=== PATIENT | female | born 1995 | race American Indian/Alaskan Native ===

== ENCOUNTER 2016-10-23 13:35 | Emergency (ER) | payer SELFPAY ==
[2016-10-23 13:53] VITALS: BP 110/76
[2016-10-23 14:32] LABS: Basophils % (Auto) 0.6 % (0.0-1.8); Eosinophils % (Auto) 3.3 % (0.0-4.3); Hematocrit 39.1 % (30.3-42.9); Hemoglobin 13.1 gm/dl (10.1-14.3); Mean Corpuscular HGB Conc 34 % (30-34); Mean Corpuscular Hemoglobin 31 pg (28-32); Mean Corpuscular Volume 91 fl (79-97); Platelet Count 144 K/mm3 (140-440); Red Blood Count 4.29 M/mm3 (3.65-5.03); Red Cell Distribution Width 14.3 % (13.2-15.2); White Blood Count 5.1 K/mm3 (4.5-11.0)
[2016-10-23 14:48] LABS: Alanine Aminotransferase 16 units/L (7-56); Albumin 4.1 g/dL (3.9-5); Albumin/Globulin Ratio 1.2 %; Alkaline Phosphatase 54 units/L (35-129); Anion Gap 16 mmol/L; BUN/Creatinine Ratio 16.66; Bilirubin,Total 0.4 mg/dL (0.1-1.2); Blood Urea Nitrogen 10 mg/dL (7-17); Carbon Dioxide 24 mmol/L (22-30); Chloride 100.4 mmol/L (98-107); Glucose 99 mg/dL (65-100); Lipase 27 units/L (13-60); Potassium 3.4 mmol/L (3.6-5.0); Sodium 137 mmol/L (137-145); Total Protein 7.4 g/dL (6.3-8.2)
== END 2016-10-23 20:40 | disposition left against medical advice (07) ==
LOC: ED 13:35
DX: R10.9 Unspecified abdominal pain (principal); R11.2 Nausea with vomiting, unspecified; R19.7 Diarrhea, unspecified; Z53.21 Procedure and treatment not carried out due to patient leaving prior to being seen by health care provider
CPT/HCPCS: 36415; 80053; 83690; 85025

== ENCOUNTER 2017-06-02 13:18 | Emergency (ER) | payer MEDICAID, OTHER ==
[2017-06-02 13:41] VITALS: BP 112/65
--- NOTE | 2017-06-02 16:06 | Emergency Department Report ---
ED Lower Extremity HPI - General Chief Complaint: Extremity Injury, Lower Stated Complaint: LFT SMALL TOE PAINFUL Time Seen by Provider: 06/02/17 16:01 Source: patient Mode of arrival: Ambulatory Limitations: No Limitations - History of Present Illness Initial Comments: Pt reports she has been having pain to her L little toe for a while, worse when standing for long periods. No trauma. No numbness. Complaint: foot injury -: Gradual, week(s) Injury: Toes: Left Place: work Severity: moderate Severity scale (0 -10): 4 Improves With: rest Worsens With: weight bearing Context: other Associated Symptoms: denies: swelling, numbness, tingling - Related Data Previous Rx's Medication Instructions Recorded Last Taken Type Meloxicam [Mobic] 15 mg PO DAILY #15 tablet 06/02/17 Unknown Rx Allergies Allergy/AdvReac Type Severity Reaction Status Date / Time pollen extracts Allergy Itching Verified 10/23/16 13:47 ED Review of Systems ROS: Stated complaint: LFT SMALL TOE PAINFUL Other details as noted in HPI Constitutional: denies: chills, fever Eyes: denies: eye pain, eye discharge, vision change ENT: denies: ear pain, throat pain Respiratory: denies: cough, shortness of breath, wheezing Cardiovascular: denies: chest pain, palpitations Endocrine: no symptoms reported Gastrointestinal: denies: abdominal pain, nausea, diarrhea Genitourinary: denies: urgency, dysuria, discharge Musculoskeletal: as per HPI. denies: back pain, joint swelling, arthralgia Skin: denies: rash, lesions Neurological: denies: headache, weakness, paresthesias Psychiatric: denies: anxiety, depression Hematological/Lymphatic: denies: easy bleeding, easy bruising ED Past Medical Hx - Past Medical History Previous Medical History?: No Additional medical history: Vaginal delivery - Surgical History Past Surgical History?: No - Social History Smoking Status: Never Smoker Substance Use Type: None - Medications Home Medications: Home Medications Medication Instructions Recorded Confirmed Last Taken Type Meloxicam [Mobic] 15 mg PO DAILY #15 tablet 06/02/17 Unknown Rx ED Physical Exam - General Limitations: No Limitations General appearance: alert, in no apparent distress - Head Head exam: Present: atraumatic, normocephalic - Eye Eye exam: Present: normal appearance - ENT ENT exam: Present: mucous membranes moist - Neck Neck exam: Present: normal inspection - Respiratory Respiratory exam: Present: normal lung sounds bilaterally. Absent: respiratory distress - Cardiovascular Cardiovascular Exam: Present: regular rate, normal rhythm. Absent: systolic murmur, diastolic murmur, rubs, gallop - GI/Abdominal GI/Abdominal exam: Present: soft, normal bowel sounds - Extremities Exam Extremities exam: Present: normal inspection, other (Pt has pain to the extensor tendon of the 5th digit of the L foot. Exam otherwise normal. CMS intact. ) - Back Exam Back exam: Present: normal inspection - Neurological Exam Neurological exam: Present: alert, oriented X3 - Psychiatric Psychiatric exam: Present: normal affect, normal mood - Skin Skin exam: Present: warm, dry, intact, normal color. Absent: rash ED Course Vital Signs 06/02/17 13:36 Temperature 97.8 F Pulse Rate 85 Respiratory 18 Rate Blood Pressure 112/65 O2 Sat by Pulse 100 Oximetry - Reevaluation(s) Reevaluation #1: 06/02/17 16:05 Pt is in NAD and stable for d/c. ED Lower Extremity MDM - Medical Decision Making Pt with probable tendonitis of foot. Will treat and refer. - Differential Diagnosis tendonitis, stress fx Critical care attestation.: If time is entered above; I have spent that time in minutes in the direct care of this critically ill patient, excluding procedure time. ED Disposition Clinical Impression: Extensor tendonitis of foot Disposition: DC-01 TO HOME OR SELFCARE Is pt being admited?: No Condition: Good Instructions: Tendinitis (ED) Prescriptions: Meloxicam [Mobic] 15 mg PO DAILY #15 tablet Referrals: ZUHAIR TRUJILLO MD [Staff Physician] - 3-5 Days Time of Disposition: 16:06
== END 2017-06-02 16:10 | disposition home or self-care (01) ==
LOC: ED 13:18
DX: M77.52 Other enthesopathy of left foot and ankle (principal); Z91.048 Other nonmedicinal substance allergy status
CPT/HCPCS: 99282

== ENCOUNTER 2017-11-04 14:28 | Emergency (ER) | payer MEDICAID ==
[2017-11-04 15:18] VITALS: BP 105/78
--- NOTE | 2017-11-04 17:42 | Emergency Department Report ---
ED General Adult HPI - General Chief complaint: Allergic Reaction Stated complaint: ALLERGIES Time Seen by Provider: 11/04/17 17:36 Source: patient Mode of arrival: Ambulatory Limitations: No Limitations - History of Present Illness Initial comments: 21-year-old -[place] female comes in today complaining of allergies uncontrolled. Patient reports that she is taking [id number] Claritin and Benadryl without much relief. She complains of itchiness to her extensors and neck. She denies any history of eczema. Patient admits to sneezing coughing runny nose and nasal congestion watery eyes. Denies any past medical history currently take [id number] Benadryl and known known drug allergies. -: week(s) (1) Location: head Radiation: non-radiation Improves with: none Worsens with: none Associated Symptoms: cough, rash Treatments Prior to Arrival: other (Benadryl, Claritin) - Related Data Previous Rx's Medication Instructions Recorded Last Taken Type Meloxicam [Mobic] 15 mg PO DAILY #15 tablet 06/02/17 Unknown Rx Levocetirizine Dihydrochloride 5 mg PO QDAY #60 tablet 11/04/17 Unknown Rx Triamcinolone Acetonide [Nasacort 16.9 ml NS QDAY #1 spray 11/04/17 Unknown Rx SPRAY] Triamcinolone Acetonide 15 gm TP BID PRN #15 oint...g. 11/04/17 Unknown Rx [Triamcinolone Acetonide Oint 0.5%] Allergies Allergy/AdvReac Type Severity Reaction Status Date / Time pollen extracts Allergy Itching Verified 10/23/16 13:47 ED Review of Systems ROS: Stated complaint: ALLERGIES Other details as noted in HPI Constitutional: denies: chills, fever Eyes: eye discharge (watery discharge from eyes) ENT: congestion, other (rhinorrhea, sneezing) Respiratory: cough. denies: shortness of breath, wheezing Cardiovascular: denies: chest pain, palpitations Endocrine: no symptoms reported Gastrointestinal: denies: abdominal pain, nausea, diarrhea Genitourinary: denies: urgency, dysuria, discharge Musculoskeletal: denies: back pain, joint swelling, arthralgia Skin: rash (neck, axillary area) Neurological: denies: headache, weakness, paresthesias Psychiatric: denies: anxiety, depression Hematological/Lymphatic: denies: easy bleeding, easy bruising ED Past Medical Hx - Past Medical History Previous Medical History?: No Additional medical history: Vaginal delivery - Social History Smoking Status: Never Smoker - Medications Home Medications: Home Medications Medication Instructions Recorded Confirmed Last Taken Type Meloxicam [Mobic] 15 mg PO DAILY #15 tablet 06/02/17 Unknown Rx Levocetirizine Dihydrochloride 5 mg PO QDAY #60 tablet 11/04/17 Unknown Rx Triamcinolone Acetonide [Nasacort 16.9 ml NS QDAY #1 spray 11/04/17 Unknown Rx SPRAY] Triamcinolone Acetonide 15 gm TP BID PRN #15 oint...g. 11/04/17 Unknown Rx [Triamcinolone Acetonide Oint 0.5%] ED Physical Exam - General Limitations: No Limitations - Eye Eye exam: Present: normal appearance, periorbital swelling - ENT ENT exam: Present: mucous membranes moist - Respiratory Respiratory exam: Present: normal lung sounds bilaterally. Absent: respiratory distress - Cardiovascular Cardiovascular Exam: Present: regular rate, normal rhythm. Absent: systolic murmur, diastolic murmur, rubs, gallop - GI/Abdominal GI/Abdominal exam: Present: soft, normal bowel sounds - Extremities Exam Extremities exam: Present: normal inspection - Back Exam Back exam: Present: normal inspection - Neurological Exam Neurological exam: Present: alert, oriented X3 - Psychiatric Psychiatric exam: Present: normal affect, normal mood - Skin Skin exam: Present: rash (hyperpigmented bilateral antecubital, neck) ED Course Vital Signs 11/04/17 15:14 Temperature 97.9 F Pulse Rate 62 Respiratory 16 Rate Blood Pressure 105/78 O2 Sat by Pulse 100 Oximetry ED Medical Decision Making - Medical Decision Making Patient has been evaluated by this provider fast track. I discussed the patient sounds like a classic allergic rhinitis. Discussed the patient I will discharge her on levocetirizine to using 5 mg daily as well as Nasacort. Use triamcinolone cream to her and the cuticle and around her neck for rash. Discussed the patient the cream can cause lightening of the skin since used sparingly. Patient verbalized understanding Critical care attestation.: If time is entered above; I have spent that time in minutes in the direct care of this critically ill patient, excluding procedure time. ED Disposition Clinical Impression: Eczema of both upper extremities Allergic rhinitis due to allergen Qualifiers: Allergic rhinitis trigger: pollen Allergic rhinitis seasonality: seasonal Qualified Code(s): J30.1 - Allergic rhinitis due to pollen Disposition: DC-01 TO HOME OR SELFCARE Is pt being admited?: No Does the pt Need Aspirin: No Condition: Stable Instructions: Allergic Rhinitis (ED), Eczema (ED) Additional Instructions: Please take medication as prescribed. Follow up with her primary care provider for continuing evaluation and care. Prescriptions: Levocetirizine Dihydrochloride 5 mg PO QDAY #60 tablet Triamcinolone Acetonide [Triamcinolone Acetonide Oint 0.5%] 15 gm TP BID PRN # 15 oint...g. PRN Reason: Rash Triamcinolone Acetonide [Nasacort SPRAY] 16.9 ml NS QDAY #1 spray Referrals: TALISHA NEW MD [Primary Care Provider] - 3-5 Days [facility] [Provider Group] - 3-5 Days Forms: Work/School Release Form(ED)
[2017-11-04] MEDS ORDERED: DELTASONE PO ONE (17:43)
--- NOTE | 2017-11-04 17:54 | Emergency Department Report ---
Chief Complaint: Allergic Reaction Stated Complaint: ALLERGIES Time Seen by Provider: 11/04/17 17:36 - HPI History of Present Illness: The patient is a 21-year-old female presents for evaluation of allergic rhinitis eye symptoms. The patient reports 1 week of soreness of throat, moderate to severe, steady in quality, exacerbated with swallowing, associated with nasal congestion and watery itching eyes. The patient denies dyspnea, neck stiffness, dysphagia, stridor, drooling, difficulty tolerating secretions, dysphonia, hoarseness of voice, abdominal pain. - Exam Vital Signs: Vital Signs 11/04/17 15:14 Temperature 97.9 F Pulse Rate 62 Respiratory 16 Rate Blood Pressure 105/78 O2 Sat by Pulse 100 Oximetry MSE screening note: Focused history and physical exam performed. Due to findings the following was ordered: ED Disposition for MSE Condition: Stable Referrals: TALISHA NEW MD [Primary Care Provider] - 3-5 Days
[2017-11-04] MEDS ORDERED: ATARAX PO ONE (18:00)
== END 2017-11-04 18:13 | disposition home or self-care (01) ==
LOC: ED 14:28
DX: J30.1 Allergic rhinitis due to pollen (principal); L30.9 Dermatitis, unspecified
CPT/HCPCS: 99282; J7512

== ENCOUNTER 2017-12-16 10:40 | Emergency (ER) | payer OTHER, MEDICAID ==
[2017-12-16 10:57] VITALS: BP 119/74
[2017-12-16] MEDS ORDERED: PERCOCET 5/325 PO ONE (11:37)
--- NOTE | 2017-12-16 11:48 | Emergency Department Report ---
HPI - General Chief Complaint: Extremity Injury, Upper Time Seen by Provider: 12/16/17 11:37 - HPI HPI: 21-year-old female presents to the emergency department with a complaint of wanting a medication refill. Patient had surgery on her forearms and wrists on 12/02/17 done by either an orthopedic surgeon or a vascular surgeon through [facility]. She said she had multiple arteries and vessels that were cut as well as lacerations. She has an appointment with this Dr. Arriaga on 12/18/17, and 2 days. She ran out of her pain medications a few days ago. She has been on oxycodone, a muscle relaxer and nerve medications. She denies any new trauma. ED Past Medical Hx - Past Medical History Previous Medical History?: No Additional medical history: Vaginal delivery - Surgical History Past Surgical History?: Yes Additional Surgical History: bilateral wrist surgery - Social History Smoking Status: Never Smoker Substance Use Type: None - Medications Home Medications: Home Medications Medication Instructions Recorded Confirmed Last Taken Type Meloxicam [Mobic] 15 mg PO DAILY #15 tablet 06/02/17 Unknown Rx Levocetirizine Dihydrochloride 5 mg PO QDAY #60 tablet 11/04/17 Unknown Rx Triamcinolone Acetonide [Nasacort 16.9 ml NS QDAY #1 spray 11/04/17 Unknown Rx SPRAY] Triamcinolone Acetonide 15 gm TP BID PRN #15 oint...g. 11/04/17 Unknown Rx [Triamcinolone Acetonide Oint 0.5%] Gabapentin [Neurontin] 300 mg PO Q8HR #6 capsule 12/16/17 Unknown Rx oxyCODONE /ACETAMINOPHEN [Percocet 1 tab PO Q8H PRN #6 tablet 12/16/17 Unknown Rx 5/325] ED Review of Systems ROS: Stated complaint: HAND PAIN/HAD SURGERY Other details as noted in HPI Comment: All other systems reviewed and negative Constitutional: denies: chills, fever Eyes: denies: eye pain, eye discharge, vision change ENT: denies: ear pain, throat pain Respiratory: denies: cough, shortness of breath, wheezing Cardiovascular: denies: chest pain, palpitations Gastrointestinal: denies: abdominal pain, nausea, diarrhea Genitourinary: denies: urgency, dysuria, discharge Musculoskeletal: arthralgia. denies: back pain Skin: denies: rash, lesions Neurological: denies: headache, weakness, paresthesias Physical Exam - Physical Exam Vital Signs: Vital Signs 12/16/17 10:53 Temperature 98.7 F Pulse Rate 107 H Respiratory 18 Rate Blood Pressure 119/74 O2 Sat by Pulse 100 Oximetry Physical Exam: GENERAL: The patient is well-developed well-nourished. Patient appears uncomfortable. HENT: Normocephalic. Atraumatic. Patient has moist mucous membranes. EYES: Extraocular motions are intact. Pupils equal reactive to light bilaterally. NECK: Supple. Trachea is midline. CHEST/LUNGS: Clear to auscultation. There is no respiratory distress noted. HEART/CARDIOVASCULAR: Regular. There is no tachycardia. There is no murmur. ABDOMEN:There is no abdominal distention. SKIN: Skin is warm and dry. NEURO: The patient is awake, alert, and oriented. The patient is cooperative. The patient has no focal neurologic deficits. The patient has normal speech. MUSCULOSKELETAL: Patient has bilateral casts on the distal upper extremities. The cast does not appear to be very tight. Good cap refill < 2 secs. ED Course Vital Signs 12/16/17 10:53 Temperature 98.7 F Pulse Rate 107 H Respiratory 18 Rate Blood Pressure 119/74 O2 Sat by Pulse 100 Oximetry ED Medical Decision Making - Medical Decision Making The patient appears uncomfortable secondary to the fact that she is postop and has run out of her medications for pain and neuropathy. It sounds like she had some extensive surgery done to the vessels, nerves and obviously the tissue. I looked up the [facility] prescription monitoring system and the patient was in fact written one prescription for pain medication by the surgeon she gives the name of and the medication would have run out, if taken appropriately, a few days ago. She says that she has an appointment coming up this Sunday so I felt it was reasonable to give her a very small amount of pain medication to get her to that appointment. She has good cap refill to the fingers of the bilateral upper extremities. Since the cast is present but also does not appear to be excessively tight, I did not feel the need to cut the cast off at this time. She has been encouraged to try and move up her appointment with her surgeon until tomorrow and to go to the emergency department before then if there is any worsening of her symptoms or any acute distress. She understands and agrees to the plan. - Differential Diagnosis neuropathy, postop pain, cellulitis, DVT Critical Care Time: No Critical care attestation.: If time is entered above; I have spent that time in minutes in the direct care of this critically ill patient, excluding procedure time. ED Disposition Clinical Impression: Medication refill, Bilateral wrist pain, Post-op pain Disposition: TO HOME OR SELFCARE Is pt being admited?: No Condition: Stable Instructions: Oxycodone/Acetaminophen (By mouth), Gabapentin (By mouth) Additional Instructions: Please follow-up with your surgeon as previously scheduled or get in tomorrow if possible. Return to the emergency Department with any worsening of your symptoms or any acute distress. Prescriptions: Gabapentin [Neurontin] 300 mg PO Q8HR #6 capsule oxyCODONE /ACETAMINOPHEN [Percocet 5/325] 1 tab PO Q8H PRN #6 tablet PRN Reason: Pain Referrals: Surgeon, Your [Other] - [facility] Time of Disposition: 11:55
== END 2017-12-16 12:06 | disposition home or self-care (01) ==
LOC: ED 10:40
DX: M25.531 Pain in right wrist (principal); M25.532 Pain in left wrist; G89.18 Other acute postprocedural pain; Z76.0 Encounter for issue of repeat prescription
CPT/HCPCS: 99282

== ENCOUNTER 2018-02-17 16:08 | Emergency (ER) | payer OTHER, MEDICAID ==
[2018-02-17 17:38] LABS: Bilirubin,Urine NEG (Negative); Blood,Urine LG (Negative); Color,Urine Yellow (Yellow); Mucus,Urine 3+ /HPF
[2018-02-17 17:41] LABS: HCG Qualitative,Urine Negative (Negative)
--- NOTE | 2018-02-17 19:41 | Emergency Department Report ---
ED Female HPI - General Chief complaint: Urogenital-Female Stated complaint: ABD PAIN Time Seen by Provider: 02/17/18 19:21 Source: patient Mode of arrival: Ambulatory Limitations: No Limitations - History of Present Illness Initial comments: 22-year-old -[place] female comes in complaining of severe pelvic pain 2 weeks. Patient states she started her period yesterday. Doesn't normally have pain with her menses. She denies any urinary symptoms no vaginal discharge no vaginal bleeding denies being . Patient reports that the pain is sharp intermittently nothing makes it worse and nothing makes it better. Patient reports that she took Tylenol only once in the last 2 weeks today. MD Complaint: vaginal bleeding (patient's currently on her menses), pelvic pain -: week(s) (2) Severity scale (0 -10): 6 Quality: sharp Consistency: intermittent Improves with: none Worsens with: none Associated Symptoms: denies other symptoms, vaginal bleeding. denies: vaginal discharge, nausea/vomiting - Related Data Sexually active: No : 1 Para: 1 Previous Rx's Medication Instructions Recorded Last Taken Type Meloxicam [Mobic] 15 mg PO DAILY #15 tablet 06/02/17 Unknown Rx Levocetirizine Dihydrochloride 5 mg PO QDAY #60 tablet 11/04/17 Unknown Rx Triamcinolone Acetonide [Nasacort 16.9 ml NS QDAY #1 spray 11/04/17 Unknown Rx SPRAY] Triamcinolone Acetonide 15 gm TP BID PRN #15 oint...g. 11/04/17 Unknown Rx [Triamcinolone Acetonide Oint 0.5%] Gabapentin [Neurontin] 300 mg PO Q8HR #6 capsule 12/16/17 Unknown Rx oxyCODONE /ACETAMINOPHEN [Percocet 1 tab PO Q8H PRN #6 tablet 12/16/17 Unknown Rx 5/325] Ibuprofen [Motrin 600 MG tab] 600 mg PO Q8H #30 tablet 02/17/18 Unknown Rx metroNIDAZOLE [Flagyl] 500 mg PO Q8HR 7 Days #21 tablet 02/17/18 Unknown Rx Allergies Allergy/AdvReac Type Severity Reaction Status Date / Time pollen extracts Allergy Itching Verified 12/16/17 10:57 ED Review of Systems ROS: Stated complaint: ABD PAIN Other details as noted in HPI Comment: All other systems reviewed and negative ED Past Medical Hx - Past Medical History Previous Medical History?: No Additional medical history: Vaginal delivery - Surgical History Additional Surgical History: bilateral wrist surgery - Social History Smoking Status: Never Smoker Substance Use Type: None - Medications Home Medications: Home Medications Medication Instructions Recorded Confirmed Last Taken Type Meloxicam [Mobic] 15 mg PO DAILY #15 tablet 06/02/17 Unknown Rx Levocetirizine Dihydrochloride 5 mg PO QDAY #60 tablet 11/04/17 Unknown Rx Triamcinolone Acetonide [Nasacort 16.9 ml NS QDAY #1 spray 11/04/17 Unknown Rx SPRAY] Triamcinolone Acetonide 15 gm TP BID PRN #15 oint...g. 11/04/17 Unknown Rx [Triamcinolone Acetonide Oint 0.5%] Gabapentin [Neurontin] 300 mg PO Q8HR #6 capsule 12/16/17 Unknown Rx oxyCODONE /ACETAMINOPHEN [Percocet 1 tab PO Q8H PRN #6 tablet 12/16/17 Unknown Rx 5/325] Ibuprofen [Motrin 600 MG tab] 600 mg PO Q8H #30 tablet 02/17/18 Unknown Rx metroNIDAZOLE [Flagyl] 500 mg PO Q8HR 7 Days #21 tablet 02/17/18 Unknown Rx ED Physical Exam - General Limitations: No Limitations - Cardiovascular Cardiovascular Exam: Present: regular rate, normal rhythm. Absent: systolic murmur, diastolic murmur, rubs, gallop - GI/Abdominal GI/Abdominal exam: Present: soft, normal bowel sounds - External exam: Present: bleeding Speculum exam: Present: vaginal bleeding Bi-manual exam: Present: normal bi-manual exam. Absent: cervical motion tendernes, adnexal tenderness, adnexal mass, uterine enlargement, uterine tenderness - Extremities Exam Extremities exam: Present: normal inspection - Neurological Exam Neurological exam: Present: alert, oriented X3 - Psychiatric Psychiatric exam: Present: normal affect, normal mood - Skin Skin exam: Present: warm, dry, intact, normal color. Absent: rash ED Course Vital Signs 02/17/18 16:15 Temperature 99.8 F H Pulse Rate 84 Respiratory 18 Rate Blood Pressure 119/65 O2 Sat by Pulse 99 Oximetry ED Medical Decision Making - Medical Decision Making Patient has been evaluated by this provider fast track. Pelvic exam was performed cultures were obtained and sent to lab. Ibuprofen given for pain management. I discussed the patient is his most likely premenstrual cramps that she's had since its 2 weeks prior to her onset of her menses and has improved while being on her period. Discussed the patient once I get the wet prep back was discussed. Critical care attestation.: If time is entered above; I have spent that time in minutes in the direct care of this critically ill patient, excluding procedure time. ED Disposition Clinical Impression: BV (bacterial vaginosis), Premenstrual syndrome Disposition: TO HOME OR SELFCARE Is pt being admited?: No Does the pt Need Aspirin: No Condition: Stable Instructions: Bacterial Vaginosis (ED), Premenstrual Syndrome (ED) Additional Instructions: Please complete antibiotics as prescribed. Please take Motrin as needed for menstrual cramps. Follow-up with her primary care provider. Prescriptions: Ibuprofen [Motrin 600 MG tab] 600 mg PO Q8H #30 tablet metroNIDAZOLE [Flagyl] 500 mg PO Q8HR 7 Days #21 tablet Referrals: PRIMARY CARE, [Primary Care Provider] - 3-5 Days Forms: STI Treatment and Prevention, Work/School Release Form(ED)
[2018-02-17] MEDS ORDERED: MOTRIN PO ONE (19:43)
[2018-02-17 20:28] VITALS: BP 117/81
== END 2018-02-17 20:28 | disposition home or self-care (01) ==
LOC: ED 16:08
DX: N94.3 Premenstrual tension syndrome (principal); N76.0 Acute vaginitis; B96.89 Other specified bacterial agents as the cause of diseases classified elsewhere; Z91.048 Other nonmedicinal substance allergy status; Z79.899 Other long term (current) drug therapy
CPT/HCPCS: 81001; 81025; 87210; 87591; 99284